=== PATIENT | male | born 1990 | race Caucasian/White ===

== ENCOUNTER 2019-09-17 00:06 | Emergency (ER) | payer BC, OTHER ==
[2019-09-17 00:12] VITALS: BP 155/85; PULSE 59; RESP 18; TEMP 97.6
[2019-09-17] MEDS ORDERED: PENICILLIN VK 500MG STARTER 4 TAB BTL PO STA (00:37)
[2019-09-17] MEDS ORDERED: LIDOCAINE 1% INJ 10MG/ML (20 ML MDV) SQ ONE (00:37)
[2019-09-17] MEDS ORDERED: BUPIVACAINE (PF) 0.25% 30 ML VIAL SQ STA (00:37)
--- NOTE | 2019-09-17 00:38 | ED ---
ENT HPI - General Chief complaint: Dental/Oral Stated complaint: Tooth Pain Time Seen by Provider: 09/17/19 00:21 Source: patient Mode of arrival: ambulatory Limitations: no limitations - History of Present Illness Initial comments: David is a 29-year-old male who presents to the ER today for evaluation of dental pain. Patient has a large dental caries in tooth #18 he is followed with the dentist for this in the past, he reports over the past 2 days she's had worsening pain and tonight it became unbearable despite taking his normal mobility and alternating Advil and Aleve. Patient denies any fevers or any new complaints. - Related Data Previous Rx's Medication Instructions Recorded Penicillin V Potassium [Pen Vee K] 500 mg PO Q6H #28 tablet 09/17/19 Allergies Allergy/AdvReac Type Severity Reaction Status Date / Time No Known Allergies Allergy Verified 09/17/19 00:12 Review of Systems ROS Statement: Those systems with pertinent positive or pertinent negative responses have been documented in the HPI. ROS Other: All systems not noted in ROS Statement are negative. Past Medical History Past Medical History: Hypertension History of Any Multi-Drug Resistant Organisms: None Reported Past Surgical History: No Surgical Hx Reported Past Psychological History: No Psychological Hx Reported Smoking Status: Current every day smoker Past Alcohol Use History: None Reported Past Drug Use History: None Reported General Exam - General Exam Comments Initial Comments: Physical Exam GENERAL: Patient is well-developed and well-nourished. Patient is nontoxic and well-hydrated and is in no distress. HENT: Normocephalic, Atraumatic. Oral mucosa is moist without any lesions Tooth #18 is a very large dental caries, no surrounding erythema or purulent drainage no abscess EYES: PERRL, EOMI PULMONARY: Unlabored respirations. CARDIOVASCULAR: RRR Warm and well perfused extremities ABDOMEN: Non-distended SKIN: No rashes or bruising : Deferred NEUROLOGIC: Alert and oriented Normal speech Normal gait MUSCULOSKELETAL: Moving all extremities with no apparent injury PSYCHIATRIC: No SI/HI Limitations: no limitations Course Vital Signs 09/17/19 00:08 Temperature 97.6 F Pulse Rate 59 L Respiratory 18 Rate Blood Pressure 155/85 O2 Sat by Pulse 100 Oximetry Procedures - Nerve Block Consent Obtained: verbal consent Local Anesthetic Used: Lidocaine 1% Side: right Intraoral Nerve Block: inferior alveolar Procedure Successful: Yes Complications: none Patient Tolerated Procedure: well, no complications Medical Decision Making - Medical Decision Making The patient was seen and evaluated history is obtained from patient Risks and benefits of a dental block including risk of bleeding, infection and permanent nerve damage were discussed, benefits of anesthesia patient is agreeable to a nerve block Patient was advised that after successful nerve block he should not eat while face is numb An inferior alveolar nerve block was performed with near immediate relief of patient's discomfort, patient will be started on penicillin for possible underlying infection of the tooth and advised to follow-up with his dentist this week Disposition Clinical Impression: Fracture of tooth Disposition: HOME SELF-CARE Condition: Stable Instructions (If sedation given, give patient instructions): Toothache (ED) Prescriptions: Penicillin V Potassium [Pen Vee K] 500 mg PO Q6H #28 tablet Is patient prescribed a controlled substance at d/c from ED?: No Referrals: Robert Hicks MD [Primary Care Provider] - 1-2 days
== END 2019-09-17 01:02 | disposition home or self-care (01) ==
LOC: EC 00:06
DX: S02.5XXA Fracture of tooth (traumatic), initial encounter for closed fracture (principal); K02.9 Dental caries, unspecified; F17.200 Nicotine dependence, unspecified, uncomplicated; X58.XXXA Exposure to other specified factors, initial encounter
CPT/HCPCS: 99282; 64450; J2001